=== PATIENT | male | born 1970 | race Asian ===

== ENCOUNTER 2018-07-07 12:41 | Emergency (ER) | payer SELFPAY ==
[~2018-07-07] VITALS: Ht 177.8 cm; Wt 78.5 kg
[2018-07-07] MEDS ORDERED: MORPHINE SULFATE 2 MG/ML SYR 1ML IV STA (13:00)
[2018-07-07] MEDS ORDERED: ONDANSETRON HCL INJ 2MG/ML 2ML 2 MG/ML VIAL IV STA (13:00)
[2018-07-07] MEDS ORDERED: SODIUM CHLORIDE 0.9% 1000ML 1,000 ML IV SCH ×2 (13:00→16:15)
[2018-07-07] MEDS ORDERED: MORPHINE SULFATE INJ 4 MG/ML INJ 1ML IV STA (13:09)
--- NOTE | 2018-07-07 15:55 | Diagnostic Imaging Report ---
EXAM: CT Abdomen and Pelvis WITH contrast INDICATION: Abdominal Pain, query pancreatitis. COMPARISON: None. TECHNIQUE: Abdomen and pelvis were scanned utilizing a multidetector helical scanner from the lung base to the pubic symphysis after administration of IV contrast. Coronal and sagittal reformations were obtained. Routine protocol was performed. Scan was performed when during portal venous phase. IV CONTRAST: 100 cc Isovue 370 COMPLICATIONS: None RADIATION DOSE: Total DLP: 650.7 mGy*cm CTDIvol has been reviewed. It is below the limits set by the Radiation Protocol Committee (RPC). Dose modulation, iterative reconstruction, and/or weight based adjustment of the mA/kV was utilized to reduce the radiation dose to as low as reasonably achievable. FINDINGS: LINES and TUBES: None. LOWER THORAX: Coronary atherosclerosis, greater than expected for the patient's age. HEPATOBILIARY: Diffuse mild hepatic steatosis. No evidence of focal lesion. No biliary ductal dilation. GALLBLADDER: No radio-opaque stones or sludge. No wall thickening. SPLEEN: No splenomegaly. PANCREAS: No focal masses or ductal dilatation. ADRENALS: No adrenal nodules KIDNEYS/URETERS: Kidneys enhance symmetrically. No evidence of hydronephrosis, solid mass, or stone. GI TRACT: No evidence of wall thickening or distension. Appendix is normal. PELVIC ORGANS/BLADDER: Unremarkable. LYMPH NODES: No lymphadenopathy. VESSELS: Atherosclerotic calcifications within the abdominal aorta and branch vessels. Extensive atherosclerotic changes within the bilateral common iliac arteries PERITONEUM / RETROPERITONEUM: No free air or fluid. BONES AND SOFT TISSUES: Unremarkable. CONCLUSION: Unremarkable CT appearance of the pancreas. Diffuse mild hepatic steatosis. Coronary atherosclerosis, greater than expected for the patient's age. Signed by: Dr. Chelly Zuñiga MD on 07/07/2018 3:49 PM
[2018-07-07] MEDS ORDERED: KETOROLAC TROMETHAMINE 30 MG/ML VIAL IV ONE (16:30)
== END 2018-07-07 16:57 | disposition home or self-care (01) ==
LOC: FSED 12:41
DX: R10.13 Epigastric pain (principal); R10.12 Left upper quadrant pain; R11.0 Nausea; I10 Essential (primary) hypertension; E11.9 Type 2 diabetes mellitus without complications; E78.5 Hyperlipidemia, unspecified; I25.2 Old myocardial infarction
CPT/HCPCS: 36415; 74177; 80048; 80076; 81003; 83690; 84484; 85025; 93005; 99284; J1885; J2270 ×2; J2405